=== PATIENT | female | born 1990 | race Caucasian/White ===

== ENCOUNTER 2024-05-26 21:54 | Emergency (ER) | payer MEDICAID ==
[~2024-05-26] VITALS: Ht 149.9 cm; Wt 83.6 kg
[2024-05-26 22:04] VITALS: BP 121/80; PULSE 97; RESP 14; TEMP 98.3; O2SAT 99
[2024-05-27] MEDS ORDERED: HYD2.5O TP (00:30)
== END 2024-05-27 00:47 | disposition home or self-care (01) ==
LOC: MED 21:54
DX: R21 Rash and other nonspecific skin eruption (principal); R03.0 Elevated blood-pressure reading, without diagnosis of hypertension; Z79.899 Other long term (current) drug therapy
CPT/HCPCS: 99282